=== PATIENT | female | born 1995 | race Caucasian/White ===

== ENCOUNTER 2019-10-11 08:19 | Emergency (ER) | payer SELFPAY ==
[~2019-10-11] VITALS: Ht 170.2 cm; Wt 86.2 kg
[2019-10-11 08:26] VITALS: BP 122/77
[2019-10-11] MEDS ORDERED: KETOROLAC TROMETH 60MG/2ML VIAL IM ONE (09:00)
== END 2019-10-11 09:21 | disposition home or self-care (01) ==
LOC: ER 08:21
DX: K04.7 Periapical abscess without sinus (principal); F17.210 Nicotine dependence, cigarettes, uncomplicated; F12.10 Cannabis abuse, uncomplicated; F15.10 Other stimulant abuse, uncomplicated
CPT/HCPCS: 96372; 99283; J1885